=== PATIENT | female | born 1980 | race Caucasian/White ===

== ENCOUNTER 2016-10-30 18:44 | Observation (INO) ==
--- NOTE | 2016-10-30 18:53 | Emergency Department Note ---
Disposition Clinical Impression: Chest pain Qualifiers: Chest pain type: unspecified Qualified Code(s): R07.9 - Chest pain, unspecified Dyspnea Qualifiers: Dyspnea type: unspecified Qualified Code(s): R06.00 - Dyspnea, unspecified Disposition: Admitted As Inpatient Time of Disposition: 23:32 Chest Pain HPI - General Chief Complaint: ED Chest Pain Stated Complaint: cp Time Seen by Provider: 10/30/16 18:53 Source: patient, family Mode of arrival: ambulatory Limitations: no limitations Vital Signs Reviewed: Yes Nursing Notes Reviewed: Yes - History of Present Illness HPI Narrative: Patient is a 36-year-old female with past medical history of hypertension, asthma. She presents today due to left-sided chest pain that she describes as a pressure that started around 4 PM today. This is approximately 3 hours prior to arrival. She said that she felt that it could possibly be musculoskeletal in nature associated with Tylenol and went to sleep. When she woke up, she was still having pain. She also started having radiation down her left arm and into her left jaw with paresthesias. She also began having sweating and nausea. She stated that those symptoms started around 4:30 PM. She does admit that she started Diflucan today due to yeast infection. She felt that this could maybe be a reaction to her medication, but she denies any redness, rash, swelling of lips or tongue. She says that the pain is mildly improved but is still present. She continues to have radiation to her left jaw and left upper extremity. Denies any other fever, cough, abdominal pain, vomiting, dysuria, hematuria. Denies any history of heavy lifting, repetitive motion of the left arm. On her walk into the department, she noticed that she was short of breath. She denies any baseline shortness of breath. Denies any previous heart attack, stent, heart catheter. She does admit that she had a stress test several years ago that was negative. Severity scale (1-10): 7 - Related Data Allergies Allergy/AdvReac Type Severity Reaction Status Date / Time albuterol AdvReac Anaphylaxis Verified 10/30/16 18:45 levofloxacin [From Levaquin] AdvReac Anaphylaxis Verified 10/30/16 18:45 Sulfa (Sulfonamide AdvReac Anaphylaxis Verified 10/30/16 18:45 Antibiotics) All systems ED: reviewed and negative except as stated. Constitutional: Denies: fever Cardiovascular: Reports: chest pain Respiratory: Reports: dyspnea. Denies: cough, hemoptysis Gastrointestinal: Reports: nausea. Denies: abdominal pain, vomiting, diarrhea Integumentary: Denies: rash, pruritus Neurological: Reports: paresthesias. Denies: headache, weakness, numbness Chest Pain PMH - Past Medical History Medical history: Reports: asthma, hypertension, other - Social History Smoking Status: Never smoker Alcohol use: Reports: none Drug use: Reports: none Physical Exam - General Limitations: no limitations General appearance: alert, in no apparent distress - Head Head exam: atraumatic, normocephalic, normal inspection - Eye Eye exam: Present: normal appearance, PERRL, EOMI - ENT ENT exam: normal exam, normal oropharynx, mucous membranes moist - Neck Neck exam: Present: normal inspection, full ROM, trachea midline - Chest Chest inspection: Present: normal inspection, symmetric chest wall rise, tenderness (mild left sided anterior chest wall tenderness that she states is not the same pain she is feeling deep in her chest) - Respiratory Respiratory exam: Present: normal lung sounds bilaterally. Absent: respiratory distress, wheezes, stridor - Cardiovascular Cardiovascular exam: Present: normal rhythm, tachycardia, normal heart sounds - Abdominal Exam Abdominal exam: Present: soft, Non-Tender. Absent: tenderness, distention, guarding, rebound, rigidity - Extremities Exam Extremities exam: Present: normal inspection, full ROM. Absent: tenderness, pedal edema - Neurological Exam Neurological exam: Present: alert, oriented X3, CN II-XII intact. Absent: motor sensory deficit - Psychiatric Psychiatric exam: Present: normal affect, normal mood - Skin Skin exam: Present: warm, dry, intact, normal color Course Course Narrative: Patient was tachycardic, tachypneic. She is also hypertensive on presentation. Physical exam showed patient was tachycardic but regular rhythm. Lungs clear to auscultation. No abdominal tenderness. No signs of anxiety on presentation. Mild left sided anterior chest wall tenderness that she states is not the same pain she is feeling deep in her chest. She did not take aspirin prior to presentation. We will give the patient aspirin 325. We will also obtain chest pain workup including EKG, chest x-ray, troponin. Her history is concerning for ACS at this time. 23:29 EKG shows normal sinus rhythm with no acute ST elevation or depression. Chest x-ray negative. Troponin negative. Chest CTA was negative for PE or any other acute pulmonary abnormality. Patient was still having left-sided chest pain despite 2 nitroglycerin. I gave her 4mg morphine and it took her pain from 7 to a 3. Will try another 4mg to see if pain reduces to 0/10. Due to concerning story for ACS, will admit for chest pain rule out for trending trops and possible stress test Chest X-Ray 10/30/16 18:53 IMPRESSION: No acute process. D/ / Sharifa Perez MD / Sharifa Perez MD Interpreting Provider: Sharifa Perez MD Chest CTA 10/30/16 20:13 IMPRESSION: No evidence of pulmonary embolism or acute pulmonary abnormality. D/ / Cristian Casas MD / Cristian Casas MD Interpreting Provider: Cristian Casas MD Vital Signs Temperature 98.8 F 10/30/16 18:45 Pulse Rate 108 10/30/16 18:45 Respiratory Rate 22 10/30/16 18:45 Blood Pressure 169/64 10/30/16 18:45 O2 Sat by Pulse Oximetry 100 10/30/16 18:45 Temperature 98.8 F 10/30/16 18:45 Pulse Rate 83 10/30/16 21:57 Respiratory Rate 0 10/30/16 23:27 Blood Pressure 0/0 10/30/16 23:27 O2 Sat by Pulse Oximetry 96 10/30/16 21:57 Oxygen Delivery Oxygen Delivery Room Air Chest Pain - MDM Narrative Medical decision making narrative: EKG shows normal sinus rhythm with no acute ST elevation or depression. Chest x-ray negative. Troponin negative. Chest CTA was negative for PE or any other acute pulmonary abnormality. Patient was still having left-sided chest pain despite 2 nitroglycerin. I gave her 4mg morphine and it took her pain from 7 to a 3. Will try another 4mg to see if pain reduces to 0/10. Due to concerning story for ACS, will admit for chest pain rule out for trending trops and possible stress test - Medical Records Medical records reviewed: Yes I reviewed the patient's medical records. - Lab Data Lab results reviewed: Yes I reviewed the patient's lab results. Result diagrams: 10/30/16 19:11 10/30/16 19:11 Lab Results 10/30/16 10/30/16 10/30/16 Range/Units 19:11 19:11 19:11 WBC 13.3 H (4.3-11.1) K/mcL RBC 5.01 H (3.82-4.97) M/mcL Hgb 13.4 (11.5-15.4) g/dL Hct 42.3 (35.3-44.9) % MCV 84.4 (83.0-100.0) fL MCH 26.7 L (28.0-33.3) pg MCHC 31.7 (31.6-35.5) g/dL RDW 14.1 (11.5-14.5) % Plt Count 179 (140-400) K/mcL MPV 10.0 (9.4-12.4) fL Immature Gran % 0.5 (0-4) % Seg Neutrophils % 69.7 % Lymphocytes % 20.3 % Monocytes % 5.8 % Eosinophils % 3.2 % Basophils % 0.5 % Neutrophils # 9.3 H (1.6-8.9) K/mcL Lymphocytes # 2.7 (0.6-4.6) K/mcL Monocytes # 0.8 (0.0-1.3) K/mcL Eosinophils # 0.4 (0.0-0.6) K/mcL Basophils # 0.1 (0.0-0.2) K/mcL Immature Plt Fraction 4.2 (1.1-6.1) % PT 11.6 (9.4-12.1) Seconds INR 1.1 APTT 21.4 L (26.0-36.0) Seconds D-Dimer 844 H (0-500) ng/mLFEU Sodium 135 L (136-145) mEq/L Potassium 4.1 (3.5-4.5) mEq/L Chloride 101 (98-109) mEq/L Carbon Dioxide 21 (19-29) mEq/L BUN 19 (7-20) mg/dL Creatinine 0.77 (0.57-1.11) mg/dL Est GFR ( Amer) > 60 (> 60) Est GFR (Non-Af Amer) > 60 (> 60) BUN/Creatinine Ratio 25 (6-26) Glucose 111 H (70-99) mg/dL Calculated Osmolality 283 (280-300) Calcium 9.5 (8.6-10.8) mg/dL Troponin I (0-0.03) ng/mL 10/30/16 Range/Units 19:11 WBC (4.3-11.1) K/mcL RBC (3.82-4.97) M/mcL Hgb (11.5-15.4) g/dL Hct (35.3-44.9) % MCV (83.0-100.0) fL MCH (28.0-33.3) pg MCHC (31.6-35.5) g/dL RDW (11.5-14.5) % Plt Count (140-400) K/mcL MPV (9.4-12.4) fL Immature Gran % (0-4) % Seg Neutrophils % % Lymphocytes % % Monocytes % % Eosinophils % % Basophils % % Neutrophils # (1.6-8.9) K/mcL Lymphocytes # (0.6-4.6) K/mcL Monocytes # (0.0-1.3) K/mcL Eosinophils # (0.0-0.6) K/mcL Basophils # (0.0-0.2) K/mcL Immature Plt Fraction (1.1-6.1) % PT (9.4-12.1) Seconds INR APTT (26.0-36.0) Seconds D-Dimer (0-500) ng/mLFEU Sodium (136-145) mEq/L Potassium (3.5-4.5) mEq/L Chloride (98-109) mEq/L Carbon Dioxide (19-29) mEq/L BUN (7-20) mg/dL Creatinine (0.57-1.11) mg/dL Est GFR ( Amer) (> 60) Est GFR (Non-Af Amer) (> 60) BUN/Creatinine Ratio (6-26) Glucose (70-99) mg/dL Calculated Osmolality (280-300) Calcium (8.6-10.8) mg/dL Troponin I 0.01 (0-0.03) ng/mL - Radiology Data Radiology results reviewed: Yes I reviewed the patient's radiology results. Chest X-Ray 10/30/16 18:53 IMPRESSION: No acute process. D/ / Sharifa Perez MD / Sharifa Perez MD Interpreting Provider: Sharifa Perez MD Chest CTA 10/30/16 20:13 IMPRESSION: No evidence of pulmonary embolism or acute pulmonary abnormality. D/ / Cristian Casas MD / Cristian Casas MD Interpreting Provider: Cristian Casas MD - EKG Data EKG attestation: Yes I reviewed and interpreted this EKG. EKG results narrative: Normal sinus rhythm. Rate 98. RI 143. QRS 90. QTc 404. Mild left axis deviation. No acute ST elevation or depression. Q wave in lead 2,3, aVF that was present on old EKG on 08/16/2014 Heart Score - Score History: Moderately Suspicious EKG: Normal Age: Less than 45 Risk Factors: 1-2 risk factors Troponin: Less than normal limit HEART Score Total: 2 S.B.A.R. - S.B.A.RJazmine Situation: Demographics, MOA Background: Presenting Complaint, Relevant PMH, Meds, & Allergies Assessment: Vital Signs, Course and respsone to treatment, Exam Concerns, Patient/Family Expectation, Pertinant Lab Results Recommendation: Barrier(s) to disposition, Recommendation based on pending studies, treatments, or consults S.B.A.RJazmine Report Given to: Dr. Tony SampsonAJuan Repor Time: 23:33 Attestation Statement - Attestation Attestation: I, Florentino Ivy DO, examined this patient [id number] and my medical decision-making was reviewed with Dr. Mulugeta Nuñez, Resident Physician. I agree with the documented findings, disposition and treatment plan as described except to the extent set forth below. Please see my progress notes for details. 36-year-old female presents with left-sided chest heaviness, shortness of breath , left arm tingling sensation is started approximately 6 hours prior to arrival here to the emergency room. Patient is morbidly obese with no other specific medical issues except for notable hypertension on presentation. Patient does not appear to be in any distress on evaluation. Lungs are clear heart is regular there is no signs of neurologic deficit or symptoms. Cranial nerves III through XII are grossly intact. Pupils are equal round reactive to light. Ocular muscles are intact. Patient has concerning symptoms for ACS. Patient given nitroglycerin aspirin and have cardiac evaluation completed. She has no risk factors at this time for stroke or vascular related insufficiency to the brain causing some of the tingling sensation. Her main concern and our main concern on presentation his cardiac or pulmonary source to her presentation. EKG troponin labs ordered and will be resulted. My physical exam is otherwise benign. Patient will most likely admission for acute coronary syndrome rule out once the evaluation in the emergency room is completed. See detailed documentation of the resident physicians physical exam, medical intervention, medical decision making process and consultations for admission.
[2016-10-30] MEDS ORDERED: Aspirin 325 MG TABLET PO ONE (18:58)
[2016-10-30 19:26] LABS: Basophils # 0.1 K/mcL (0.0-0.2); Basophils % 0.5 %; Eosinophils # 0.4 K/mcL (0.0-0.6); Eosinophils % 3.2 %; Hematocrit 42.3 % (35.3-44.9); Hemoglobin 13.4 g/dL (11.5-15.4); Immature Granulocytes % 0.5 % (0-4); Immature Platelets 4.2 % (1.1-6.1); Lymphocytes # 2.7 K/mcL (0.6-4.6); Lymphocytes % 20.3 %; Mean Corpuscular HGB Conc 31.7 g/dL (31.6-35.5); Mean Corpuscular Hemoglobin 26.7 pg (28.0-33.3); Mean Corpuscular Volume 84.4 fL (83.0-100.0); Monocytes # 0.8 K/mcL (0.0-1.3); Monocytes % 5.8 %; Neutrophils # 9.3 K/mcL (1.6-8.9); Red Blood Count 5.01 M/mcL (3.82-4.97); Red Cell Distribution Width 14.1 % (11.5-14.5); Segmented Neutrophils % 69.7 %
[2016-10-30 19:34] LABS: INR 1.1; Prothrombin Time 11.6 Seconds (9.4-12.1)
[2016-10-30 19:37] LABS: Activated Partial Thrombo Time 21.4 Seconds (26.0-36.0)
[2016-10-30 19:38] LABS: BUN/Creatinine Ratio 25 (6-26); Blood Urea Nitrogen 19 mg/dL (7-20); Calcium 9.5 mg/dL (8.6-10.8); Carbon Dioxide 21 mEq/L (19-29); Chloride 101 mEq/L (98-109); Glucose 111 mg/dL (70-99); Osmolality,Calculated 283 (280-300); Potassium 4.1 mEq/L (3.5-4.5); Sodium 135 mEq/L (136-145); eGFR For African Americans > 60 (> 60); eGFR For Non-African Americans > 60 (> 60)
[2016-10-30] MEDS: Nitroglycerin 0.4 MG TAB.SUBL SL PRN ×2 (19:47→19:52)
[2016-10-30 20:09] LABS: Platelet Count 179 K/mcL (140-400)
[2016-10-30] MEDS ORDERED: *HR* Morphine 2 MG/ML SYRINGE IVP ONE ×2 (21:47→23:29)
[2016-10-31] MEDS ORDERED: *HR* Morphine 2 MG/ML SYRINGE IVP PRN (00:56)
[2016-10-31] MEDS ORDERED: Naloxone 0.4 MG/ML INJ IVP PRN (00:56)
[2016-10-31] MEDS ORDERED: *HR* Promethazine 25 MG/ML VIAL IVP PRN (00:56)
[2016-10-31] MEDS ORDERED: Acetaminophen 325 MG TABLET PO PRN (00:56)
--- NOTE | 2016-10-31 00:56 | Internal Med History&Physical ---
<Pop Bond - Last Filed: 10/31/16 02:32> Date of Encounter: 10/31/16 Time of Encounter: 00:35 Assessment and Plan (1) Chest pain Current visit: Yes Status: Acute Patient presents today not having reported left shoulder pain that radiated into her chest and jaw. EKG was concerning for acute, ischemic change. Initial troponin negative. Chest x-ray unremarkable. Patient having mild tachycardia. We will continue to monitor patient on telemetry and pulse oximetry Stress test ordered for a.m. We will obtain echocardiogram Continue to trend troponins Nothing by mouth for stress test Patient received full aspirin in the ER, will continue with baby aspirin daily 100 mL an hour normal saline maintenance fluids while patient nothing by mouth 40 mg atorvastatin We will obtain lipid profile EKG in a.m. Qualifiers: Chest pain type: unspecified Qualified Code(s): R07.9 - Chest pain, unspecified (2) Shortness of breath Current visit: Yes Status: Acute Patient reports shortness of breath with exertion. She states this is new for her as she normally does not feel this way with exertion. Possibly due to deconditioning. We will continue to monitor, likely will improve with decreased pain levels (3) Hypertension Current visit: Yes Status: Acute Patient has consistent hypertension since presentation to the ER. She takes metoprolol and combination losartan/HCTZ at home. We will hold metoprolol for stress test collected today Continue losartan/HCTZ Continue monitor with regular vitals Qualifiers: Hypertension type: essential hypertension Qualified Code(s): I10 - Essential (primary) hypertension (4) Hypothyroidism Current visit: Yes Status: Acute Patient normally takes 25 g Synthroid at home due to hypothyroidism. Current TSH level normal. We will continue home dose of levothyroxine Qualifiers: Hypothyroidism type: unspecified Qualified Code(s): E03.9 - Hypothyroidism , unspecified (5) DVT prophylaxis Current visit: Yes Status: Acute 40 mg Lovenox subcutaneous daily Internal Medicine - H&P: HPI Chief complaint: CP Admitted From: Home Plans for Post Hospital Care: Home History of present illness: Ms. Barragan is a 36 year old female with prior medical history of hypertension asthma psoriasis, and hypothyroid who presents to [place] from home after suffering chest pain early this afternoon. She reports that the pain started about 4 to 4:30 in the afternoon began her left shoulder from there she felt like she was having a "shock" like pain left center part of her chest. She reports it as 7/10 in severity that was not improved by anything and made worse by walking with shortness of breath with walking as well. She states she started having some left arm numbness and tingling progressed into the left jaw pain and lightheadedness. The pain was constant in character after several hours she described the pain as a pressure. He was made better slightly by morphine in the emergency room. She denies having any diaphoresis, nausea, or vomiting. She denies ever having a pain like this in the past and was concerned so decided come to the emergency room. Past Med Surg Social Fam HX - Past Medical History Medical history: asthma, hypertension, other - Social History Smoking Status: Never smoker Smokeless Tobacco Status: No Alcohol use: none Drug use: none - Family History Mother Living Status: Still Living Hx Family Cancer: Yes (breast, bowel.) Hx Family Medical Disorders: Yes (stroke at 42 years old, left arm paralysis) Internal Medicine - H&P: Meds Losartan/HCTZ [Hyzaar 50-12.5 Tablet] 1 tab PO DAILY 10/31/16 [History] Metoprolol 50 mg PO DAILY 10/31/16 [History] Synthroid 25 mg PO DAILY 10/31/16 [History] Vitamin D 10,000 units PO DAILY 10/31/16 [History] 3 Allergy/AdvReac Type Severity Reaction Status Date / Time albuterol AdvReac Anaphylaxis Verified 10/30/16 18:45 levofloxacin [From Levaquin] AdvReac Anaphylaxis Verified 10/30/16 18:45 Sulfa (Sulfonamide AdvReac Anaphylaxis Verified 10/30/16 18:45 Antibiotics) Review of systems: Gen: Denies fever, denies chills, denies weakness, denies fatigue CV: Reports chest pain as per history of present illness, reports shortness of breath with walking, denies palpitations, reports ache/numbness/tingling in left jaw Resp: Reports shortness of breath with walking, denies pleuritic pain, denies coughing, denies changes in phlegm production, denies wheeze GI: Denies nausea, denies vomiting, denies abdominal pain, denies constipation, denies diarrhea, denies hematochezia, denies melena MSK: denies arthralgia, denies muscle weakness Neuro: Denies headache, denies confusion, denies focal weakness, reports numbness and tingling in her left arm, reports lightheadedness, denies vision changes Skin: Denies bruising, denies rash : Denies flank pain, denies dysuria, denies hematuria - Constitutional Vitals: Temp Pulse Resp BP Pulse Ox 98.7 F 92 16 140/85 95 10/31/16 00:54 10/31/16 00:54 10/31/16 00:54 10/31/16 00:54 10/31/16 00:54 Exam: General: Cooperative, pleasant, no acute distress, alert and oriented 3, answers questions appropriately HEENT: Normocephalic, atraumatic, neck supple, trachea midline, Conjunctiva pink , sclera anicteric, EOMI, PERRL, oral mucosa moist, no orophargeal erythema or exudates Respiratory: No accessory muscle usage, clear to auscultation bilaterally, no wheezes/rhonchi/rales appreciated Cardiovascular: Regular rate and rhythm, S1 and S2 present, no murmurs/rubs/ gallops/clicks appreciated GI/abdominal: Nondistended, nontender, obese, soft, normal bowel sounds, no peritoneal signs Extremities: No calf tenderness, noncyanotic, no pedal edema appreciated, warm, lower extremity pulses palpable and symmetrical Neurological: Alert and oriented 3, no facial droop, no focal deficits Skin: Dry, intact, normal color Internal Med - H&P Results - Labs CBC & Chem 7: 10/31/16 01:11 10/31/16 01:11 <Lyly Shelby - Last Filed: 10/31/16 05:32> Date of Encounter: 10/31/16 Internal Medicine - H&P: HPI History of present illness: Ms. Barragan is a 36 year old female All Systems PM: A 10-system review of systems was performed and is negative for pertinent findings except as documented above in the HPI. - Constitutional Vitals: Temp Pulse Resp BP Pulse Ox 97.9 F 75 17 105/64 95 10/31/16 03:53 10/31/16 03:53 10/31/16 03:53 10/31/16 03:53 10/31/16 03:53 Internal Med - H&P Results - Labs CBC & Chem 7: 10/31/16 01:11 10/31/16 01:11 Labs: Short CBC 10/31/16 Range/Units 01:11 WBC 11.6 H (4.3-11.1) K/mcL Hgb 12.5 (11.5-15.4) g/dL Hct 39.3 (35.3-44.9) % Plt Count 236 (140-400) K/mcL Neutrophils # 7.2 (1.6-8.9) K/mcL BMP 10/31/16 01:11 Sodium 136 Potassium 3.7 Chloride 101 Carbon Dioxide 25 BUN 17 Creatinine 0.76 Glucose 95 Calcium 9.4 Cardiac Enzymes 10/31/16 Range/Units 01:11 Troponin I 0.00 (0-0.03) ng/mL - Attending Attestation I have independently seen and examined the patient. I agree with the assessment and plan as documented by the resident physician Pop Bond except as listed below: Patient is a 36 y/o morbidly obese female admitted for pressure like substernal chest pain with radiation to the jaw. Will admit to rule out ACS. Nuclear stress test in am, serial TNI, tele monitoring. Patient resting in bed and reports of resolution of chest pain during my evaluation. will closely monitor.
[2016-10-31] MEDS ORDERED: 0.9 % Sodium Chloride 1,000 ML IVC SCH (01:15)
[2016-10-31 01:51] LABS: INR 1.2; Prothrombin Time 12.8 Seconds (9.4-12.1)
[2016-10-31 01:52] LABS: Basophils # 0.1 K/mcL (0.0-0.2); Basophils % 0.5 %; Eosinophils # 0.5 K/mcL (0.0-0.6); Eosinophils % 4.1 %; Hematocrit 39.3 % (35.3-44.9); Hemoglobin 12.5 g/dL (11.5-15.4); Immature Granulocytes % 0.6 % (0-4); Lymphocytes # 3.3 K/mcL (0.6-4.6); Lymphocytes % 28.4 %; Mean Corpuscular HGB Conc 31.8 g/dL (31.6-35.5); Mean Corpuscular Volume 81.9 fL (83.0-100.0); Mean Platelet Volume 9.5 fL (9.4-12.4); Monocytes # 0.5 K/mcL (0.0-1.3); Monocytes % 4.7 %; Neutrophils # 7.2 K/mcL (1.6-8.9); Platelet Count 236 K/mcL (140-400); Red Cell Distribution Width 14.1 % (11.5-14.5); Segmented Neutrophils % 61.7 %
[2016-10-31 01:54] LABS: Activated Partial Thrombo Time 28.3 Seconds (26.0-36.0)
[2016-10-31 02:01] LABS: BUN/Creatinine Ratio 22 (6-26); Blood Urea Nitrogen 17 mg/dL (7-20); Calcium 9.4 mg/dL (8.6-10.8); Carbon Dioxide 25 mEq/L (19-29); Chloride 101 mEq/L (98-109); Chol/HDL Ratio 4.9 (0-4.9); Cholesterol 168 mg/dL (< 200); Glucose 95 mg/dL (70-99); HDL Cholesterol 34 mg/dL (40-59); LDL Cholesterol,Calculated 102 mg/dL (0-99); Osmolality,Calculated 283 (280-300); Potassium 3.7 mEq/L (3.5-4.5); Sodium 136 mEq/L (136-145); Triglycerides 159 mg/dL (< 150); eGFR For African Americans > 60 (> 60); eGFR For Non-African Americans > 60 (> 60)
[2016-10-31] MEDS ORDERED: Loperamide 1 MG/5 ML UDC PO PRN (02:18)
[2016-10-31] MEDS: Pantoprazole 40 MG VIAL IVP SCH (06:02)
[2016-10-31] MEDS: Levothyroxine 25 MCG TABLET PO SCH (06:02)
[2016-10-31] MEDS: *HR* Enoxaparin 40 MG/0.4 ML SYRINGE SQ SCH (06:29)
[2016-10-31] MEDS ORDERED: Regadenoson 0.4 MG/5 ML SYRINGE IVP ONE (06:33)
[2016-10-31] MEDS ORDERED: Folic Acid 1 MG TABLET PO SCH (09:00)
[2016-10-31] MEDS ORDERED: Thiamine (B-1) 100 MG TABLET PO SCH (09:00)
[2016-10-31] MEDS: Losartan/HCTZ 50-12.5 TABLET PO SCH (11:26)
[2016-10-31] MEDS: Cholecalciferol (D-3) 1,000 UNIT TABLET PO SCH (11:26)
[2016-10-31] MEDS: Aspirin 81 MG TAB.CHEW PO SCH (11:26)
[2016-10-31] MEDS ORDERED: Ibuprofen 400 MG TABLET PO PRN ×2 (14:13→15:17)
--- NOTE | 2016-10-31 15:14 | Event Note ---
Date of Encounter: 10/31/16 Time of Encounter: 15:00 Patient continues to have left upper chest pressure. Underwent part of her stress test today. Is scheduled for second part tomorrow. Reports headache and some itching where her telemetry pads for her. No shortness of breath or palpitations. Will await results of cardiac stress test. Lipid profile shows LDL of 102 and HDL of 34. 2-D echocardiogram done and shows EF of 60-65% with normal left ventricular diastolic function. Normal wall motion.
[2016-11-01] MEDS: *HR* Enoxaparin 40 MG/0.4 ML SYRINGE SQ SCH (05:11)
[2016-11-01] MEDS: Levothyroxine 25 MCG TABLET PO SCH (05:28)
[2016-11-01] MEDS: Pantoprazole 40 MG VIAL IVP SCH (05:28)
[2016-11-01 07:06] VITALS: BP 126/59
[2016-11-01] MEDS: Cholecalciferol (D-3) 1,000 UNIT TABLET PO SCH (09:16)
[2016-11-01] MEDS: Aspirin 81 MG TAB.CHEW PO SCH (09:16)
[2016-11-01] MEDS: Losartan/HCTZ 50-12.5 TABLET PO SCH (09:16)
--- NOTE | 2016-11-01 09:40 | Nuclear Medicine Stress Report ---
Regadenoson Nuclear 2 Name: Kodi Barragan Date of Study: 10/31/2016 Date: 1980 Ht: 64.0 in Medical Record#: [id number] Age: 36 Wt: 400.0 lb Gender: Female Order #: [id number] Location: [facility] Room: [facility] Supervising Provider: Pavan Guillen CNP Reading Physician: Matt Mir DO, FACC, [facility] Ordering Physician: Maria Eugenia Vicente MD Stress Technologist: Roselia Barney RRT,CPFT Assembly Department Supervisor: Aicha Krishnan Indications: Chest Pain Impression: Pharmacologic stress ECG is negative for ischemia at level of heart rate achieved. Chest discomfort reported prior to Lexiscan. No symptoms reported during the study. Gated EF = 63%. Small sized, mild intensity, primarily fixed inferior perfusion defect. Wall motion is normal. Findings are most consistent with artifact. Perfusion imaging was negative for ischemia or infarct. History: Hypertension Hypercholesteremia Stress Test Summary: Stress Test Type: Pharmacologic Regadenoson 0.4mg/5ml given IV Baseline Information: Initial Heart Rate: 90 Blood Pressure: 118/64 Stress Information: Test Terminated Due to (primary): As per protocol Maximum Blood Pressure: 104/62 Maximum Heart Rate: 112 Percent Maximum Heart Rate Achieved: 62 Double Product: 14009 METS Reached: 1 Symptoms: Chest pressure prior to testing Nuclear Summary: SPECT myocardial perfusion imaging using Tc99m Sestamibi given intravenously was performed at rest and following cardiac stress testing. The resting images were obtained following initial dose of 34.2 mCi. Following stress an additional dose of 34.6 mCi was given at peak exercise or 30 seconds post regadenoson infusion. Medication Given: Time Medication Dose Units Route Findings: Stress Note * Resting ECG demonstrated normal sinus rhythm. * No baseline arrhythmias were noted. * Pharmacologic stress ECG is negative for ischemia at level of heart rate achieved. * No arrhythmias were noted during stress. * Chest discomfort reported prior to Lexiscan. No symptoms reported during the study. Hemodynamic responses * Normal hemodynamic responses to pharmacologic stress. Study Quality * Study quality was fair. Gated EF % * Gated EF = 63%. Left Ventricle * LVEDV = 139 mL. NORMALS * Normal wall motion. Inferior Perfusion Rest * The inferior segment shows a mild reduction in perfusion. Inferior Perfusion Stress * The inferior segment shows a mild reduction in perfusion. TID * No evidence of transient ischemic dilatation. TID ratio * TID ratio = 1.03. Lung Uptake * There is no evidence of increase lung uptake. Updated by Matt Mir DO, FACCelena, LILIANA, JANET on 11/01/2016 9:35:11 AM electronically signed on 11/01/2016 9:35:36 AM with status of Final
--- NOTE | 2016-11-01 10:25 | Discharge Summary ---
Date of Encounter: 11/01/16 Time of Encounter: 10:23 - Discharge Diagnosis (1) Chest pain Priority: Primary Status: Acute Qualifiers: Chest pain type: intercostal pain Qualified Code(s): R07.82 - Intercostal pain (2) Shortness of breath Priority: Secondary Status: Acute (3) DVT prophylaxis Priority: Secondary Status: Acute (4) Hypothyroidism Priority: Secondary Status: Acute Qualifiers: Hypothyroidism type: unspecified Qualified Code(s): E03.9 - Hypothyroidism , unspecified (5) Hypertension Priority: Secondary Status: Acute Qualifiers: Hypertension type: essential hypertension Qualified Code(s): I10 - Essential (primary) hypertension (6) Morbid obesity with BMI of 60.0-69.9, adult Priority: Secondary Status: Chronic - Discharge Medications Home Medications: Cetirizine HCl [All Day Allergy] 10 mg PO DAILY 10/31/16 [History] Fluticasone Propionate Nasal [Flonase] 1 spr NS DAILY 10/31/16 [History] Levothyroxine [Synthroid] 25 mcg PO DAILY 10/31/16 [History] Losartan/HCTZ [Hyzaar 50-12.5 Tablet] 1 tab PO DAILY 10/31/16 [History] Metoprolol XL (24 HR) Succ [Toprol Xl] 50 mg PO DAILY 10/31/16 [History] Omeprazole [PriLOSEC] 40 mg PO DAILY 10/31/16 [History] Allergies/Adverse Reactions: 3 Allergy/AdvReac Type Severity Reaction Status Date / Time albuterol AdvReac Anaphylaxis Verified 10/30/16 18:45 levofloxacin [From Levaquin] AdvReac Anaphylaxis Verified 10/30/16 18:45 Sulfa (Sulfonamide AdvReac Anaphylaxis Verified 10/30/16 18:45 Antibiotics) Procedures/tests Complete & Pending: Procedures Performed prior 72 hours Category Date Time Status NM lashawn perf SPECT multi [NM] Routine Exams 10/31/16 02:08 Taken ECG 12 lead ECG [ECG] Routine Y 11/01/16 07:00 Ordered EV echocardiogram Routine Y 10/31/16 01:00 Completed SP pharm nuclear stress Routine Y 10/31/16 02:08 Completed Date of admission: 10/30/16 23:12 Primary care physician: Rukhsana Hopkins Discharging clinician: Maria Eugenia Vicente Anticipated date of discharge: 11/01/16 - Patient Status Disposition: Home, Self-Care Condition: Good Functional capacity at discharge: independent ambulation Overall status at discharge: patient is progressing back to baseline - Discharge Instructions Instructions: Chest Pain (DC) Follow Up With: Minal Mike MD [Family Provider] - Rukhsana Hopkins CNP [Primary Care Provider] - 11/13/16 10:30 am (in 1-2 weeks) Additional Instructions: Please go to the nearest emergency room, or call your doctor's office if any new symptoms arise, symptoms return or worsen, or with any other concerns. - Diet and Activity Activity: increase activity as tolerated Diet: low fat, low cholesterol, low salt diet Hospital course: Ms. Barragan is a 36 year old female patient with a history of hypertension and hypothyroidism who was observed here after presenting with left-sided chest pain with some typical features for angina. She was observed to rule out [place]. Her troponins have been negative and she then underwent stress test. Her stress test has been negative for any reversible ischemia. She did have a fixed inferior perfusion defect which was believed to be artifact. She no longer has chest pain at this time and is stable for discharge. She also had a 2-D echocardiogram done here which showed a normal ejection fraction of 60-65%. No significant valvular dysfunction was identified. She does have a low HDL level but her total cholesterol level was within normal limits. She is advised to try conservative measures including weight loss and exercise to improve her cholesterol levels and controlled her blood pressure better. She will be discharged home at this time. - Time Spent with Patient Total time spent providing and/or coordinating discharge services: Less than 30 minutes (20 min) - Constitutional Vitals: Temp Pulse Resp BP Pulse Ox 97.7 F 86 16 126/59 96 11/01/16 07:00 11/01/16 07:00 11/01/16 07:00 11/01/16 07:00 11/01/16 07:00 General appearance: Present: cooperative, A&O X 3, morbidly obese, answers questions appropriately - Neck Neck exam general surgery: Present: supple, trachea midline. Absent: lymphadenopathy - Respiratory Respiratory exam: Present: CTAB. Absent: accessory muscle use, rales, rhonchi, wheezes - Cardiovascular Cardiovascular exam: Present: RRR, +S1, +S2. Absent: diastolic murmur, gallop, rubs, systolic murmur - GI/Abdominal GI/Abdominal exam: Present: normal bowel sounds, soft, no peritoneal signs. Absent: distended, tenderness - Extremities Exam Extremities exam: Present: warm, radial pulses palpable and symmetrical. Absent : calf tenderness, cyanotic, pedal edema - Neurological Exam Neurological exam: Present: alert, oriented X3, no focal deficits. Absent: facial droop, speech deficit - Skin Skin exam: Present: dry, intact
--- NOTE | 2016-11-04 08:34 | Electrocardiograph Report ---
[place] [id number] Test Date: 2016-10-30 Pat Name: Kodi Barragan Department: 104 Room: [facility] Gender: F Forging Machine Hand: EKP : 1980 Requested By: Mulugeta Nuñez Order Number: [id number] Reading MD: Matt Mir DO Measurements Intervals [place] Rate: 98 P: 30 UT: 143 QRS: 14 QRSD: 90 T: 22 QT: 348 QTc: 404 Interpretive Statements SINUS RHYTHM Electronically Signed On 11-03-2016 9:18:14 EDT by Matt Mir DO
== END 2016-11-01 12:20 | disposition home or self-care (01) ==
LOC: EMEROO 18:44 → 3NENU 18:44
PROVIDERS: ADMIT Internal Medicine; ATTEND Internal Medicine